=== PATIENT | female | born 1995 | race Caucasian/White ===

== ENCOUNTER 2017-10-10 07:38 | Day surgery (SDC) | payer BC, MEDICAID ==
[2017-10-10] MEDS ORDERED: Sodium Chloride 0.9% 10 ML Syringe FLUSH PRN (07:45)
[2017-10-10] MEDS ORDERED: Lactated Ringers 1,000 ML IV SCH (07:45)
[2017-10-10] MEDS ORDERED: Propofol 200 MG/20 ML SDV IV ONE (09:00)
[2017-10-10] MEDS ORDERED: Lidocaine 2% 100 MG/5 ML Syringe IVPUSH ONE (09:00)
[2017-10-10] MEDS ORDERED: Midazolam 1 MG/ML 2 ML SDV IV ONE (09:00)
--- NOTE | 2017-10-10 09:13 | PCM.OPNOTE ---
- General Post-Op/Procedure Note Date of Surgery/Procedure: 10/10/17 Operative Procedure(s): egd with bx Findings: gastritis esophagitis Pre Op Diagnosis: dysphagia Post-Op Diagnosis: gastritis. esophagitis Anesthesia Technique: MAC Primary Surgeon: Lev Collier Anesthesia Provider: Raysa Parikh Pathology: stomach and esophagus. Condition: Good
[2017-10-10 11:33] VITALS: BP 101/66
--- NOTE | 2017-10-10 13:46 | OR ---
DATE OF OPERATION: 10/10/2017 SURGEON: Lev Collier MD PROCEDURE PERFORMED: Esophagogastroduodenoscopy with cold forceps biopsy. PREOPERATIVE DIAGNOSIS: Dysphagia. POSTOPERATIVE DIAGNOSIS: Gastritis and esophagitis. INDICATIONS FOR PROCEDURE: This is a 21-year-old white female who is referred with the above-mentioned complaints of worsening symptomatic GERD as well as some dysphagia. She has been on ranitidine all year and it has not handled her symptoms. She was offered and accepted an upper endoscopy. DESCRIPTION OF OPERATION: After an excellent IV sedation was administered, the bite block was inserted. The flexible endoscope was passed without difficulty down the patient's esophagus into the stomach. The stomach was insufflated and scope was passed through the pylorus to the second portion of the duodenum and slowly withdrawn. The following findings were noted: Duodenum was unremarkable. Stomach demonstrated small amount of gastritis. Random biopsies were taken. GE junction measured approximately 38 cm and there was some erythema just proximal to this involving the distal 2-3 cm of the esophagus. Biopsies were taken circumferentially. Remainder of the esophageal exam was unremarkable. Stomach was deflated. Scope was removed. The patient tolerated the procedure well, was taken to recovery room in good condition. /[id number] /[id number]
== END 2017-10-10 10:29 | disposition home or self-care (01) ==
LOC: FB.SDS 07:38
PROVIDERS: ATTEND Surgery
DX: K29.50 Unspecified chronic gastritis without bleeding (principal); K21.0 Gastro-esophageal reflux disease with esophagitis; Z91.030 Bee allergy status; Z91.09 Other allergy status, other than to drugs and biological substances; Z79.899 Other long term (current) drug therapy; Z98.890 Other specified postprocedural states
CPT/HCPCS: 43239; 81025; J2250; J2704; J7120; 88305; 88313; 88342